=== PATIENT | female | born 1995 | race Hispanic/Latino ===

== ENCOUNTER 2017-03-31 18:26 | Emergency (ER) | payer OTHER ==
[2017-03-31] MEDS ORDERED: Sodium Chloride 0.9% 1,000 ML ONE (18:41)
[2017-03-31] MEDS ORDERED: Ondansetron HCl/PF 4 MG/2 ML Vial ONE (18:42)
[2017-03-31] MEDS ORDERED: cefTRIAXone\\ROCEPHIN 2 GM VIAL ONE (18:42)
[2017-03-31] MEDS ORDERED: Morphine Sulfate 2 MG/ML SYRINGE ONE (18:43)
[2017-03-31] MEDS ORDERED: Sodium Chloride 0.9% 100 ML ONE (18:43)
[2017-03-31 18:58] LABS: Bilirubin Negative (Negative); Blood, Urine Moderate (Negative); Clarity Slightly Cloudy (Clear); Glucose, Urine (Dipstick) Negative (Negative); Leukocyte Large (Negative); Nitrite Positive (Negative); Protein, Urine (Dipstick) > or equal to 300 mg/dL (Neg-Trace); Specific Gravity, Urine 1.025 (1.005-1.030); Urobilinogen 0.2 mg/dL (0.2-1.0)
[2017-03-31 19:10] LABS: Pregnancy Test - Urine (BHCG) Negative (NEGATIVE); Pregu Control Background? CLEAR/WHITE (CLR/WHITE); Pregu Control Bar Appear? YES (CONTROL BAR); Specific Gravity 1.025 (1.002-1.036)
[2017-03-31] MEDS ORDERED: Acetaminophen 500 MG TAB ONE (19:18)
[2017-03-31 19:25] LABS: Bacteria/HPF 2+ HPF (None Seen)
[2017-03-31 19:28] LABS: Lactic Acid 2.3 mmol/L (0.5-2.2)
[2017-03-31 19:31] LABS: Anion Gap 15 mmol/L (10-20); BUN (Urea Nitrogen) 6 mg/dL (7.0-18.7); Calc. Creatinine Clearance 0 mL/min (70-130); Carbon Dioxide 22 mmol/L (22-29); Chloride 105 mmol/L (98-107); Estimated GFR-MDRD Greater than 90; Glucose 102 mg/dL (70-105); Potassium 3.9 mmol/L (3.5-5.1); Sodium 138 mmol/L (136-145)
[2017-03-31] MEDS ORDERED: Sodium Chloride 0.9% 250 ML 250 ML ONE (19:56)
[2017-03-31 20:00] LABS: ALT (SGPT) 28 U/L (8-55); AST (SGOT) 20 U/L (5-34); Albumin 3.4 g/dL (3.5-5.0); Alkaline Phosphatase 121 U/L (40-150); Bilirubin, Direct 0.2 mg/dL (0.1-0.3); Bilirubin, Total 0.4 mg/dL (0.2-1.2); Protein, Total 7.1 g/dL (6.0-8.3)
[2017-03-31 20:11] LABS: #Basophils 0.1 thou/uL (0.0-0.2); #Lymphocytes 1.4 thou/uL (1.20-3.40); #Monocytes 1.1 thou/uL (0.11-0.59); #Neutrophils 10.8 thou/uL (1.40-6.50); %Basophils 0.8 % (0.0-1.0); %Eosinophils 0.3 % (0.0-10.0); %Lymphocytes 10.4 % (21.0-51.0); %Monocytes 8.4 % (0.0-10.0); Hemoglobin 9.3 g/dL (12.0-16.0); Mean Corpuscular HGB CONC 30.5 g/dL (32.0-36.0); Mean Corpuscular Hemoglobin 23.2 pg (27.0-31.0); Mean Corpuscular Volume 76.2 fl (81.0-99.0); Mean Platelet Volume 8.3 fL (7.4-10.4); Platelet Count 281 thou/uL (130-400); RBC Distribution Width 16.7 % (11.5-14.5); Red Blood Cell (RBC) Count 4.03 mill/uL (4.20-5.40); White Blood Cell (WBC) Count 13.5 thou/uL (4.8-10.8)
[2017-03-31 20:16] LABS: Microcytosis SLIGHT = 6-15 cells (100X) (0-5/hpf); PLT Morphology Comment Appears Adequate
== END 2017-03-31 21:30 | disposition short-term general hospital (02) ==
LOC: NAV ERS 18:26
DX: A41.9 Sepsis, unspecified organism (principal); N39.0 Urinary tract infection, site not specified
CPT/HCPCS: 80048; 80076; 81003; 81015; 81025; 83605; 85025; 87040; 87077; 87086; 87186; 96365; 96366; 96367; 96375; J0696; J2270; J2405; J3370; J7050

== ENCOUNTER 2017-04-05 14:37 | Outpatient (CLI) | payer OTHER ==
--- NOTE | 2017-04-05 15:53 | RAD ---
TWO VIEW CHEST: History: Shortness of breath. Comparison: 05-03-13 FINDINGS: There has been significant change in the appearance of the chest. Heart size is mildly prominent on this frontal projection. There are bilateral hazy patchy alveolar infiltrates. I cannot exclude small effusions. IMPRESSION: Bilateral lung infiltrates and question small bilateral effusions. POS: [facility]
== END 2017-04-05 14:38 | disposition home or self-care (01) ==
LOC: NAV RAD 14:37
PROVIDERS: ATTEND Internal Medicine
DX: R06.02 Shortness of breath (principal); R91.8 Other nonspecific abnormal finding of lung field
CPT/HCPCS: 71020

== ENCOUNTER 2019-02-19 08:45 | Emergency (ER) | payer OTHER ==
[2019-02-19] MEDS ORDERED: Bacitracin 1 PK ONE (09:24)
== END 2019-02-19 10:35 | disposition home or self-care (01) ==
LOC: NAV ERS 08:45
DX: S61.252A Open bite of right middle finger without damage to nail, initial encounter (principal); I10 Essential (primary) hypertension; Z79.899 Other long term (current) drug therapy; W54.0XXA Bitten by dog, initial encounter
CPT/HCPCS: 99283

== ENCOUNTER 2024-08-12 08:36 | Emergency (ER) | payer OTHER ==
[2024-08-12] MEDS ORDERED: methylPREDNISolone Acetate 40 mg/ml Vial ONE (09:53)
[2024-08-12] MEDS ORDERED: Naproxen 500 MG TAB ONE (09:53)
== END 2024-08-12 10:04 | disposition home or self-care (01) ==
LOC: NAV ERS 08:36
DX: S39.012A Strain of muscle, fascia and tendon of lower back, initial encounter (principal); M54.42 Lumbago with sciatica, left side; X58.XXXA Exposure to other specified factors, initial encounter
CPT/HCPCS: 96372; 99283; J1010